=== PATIENT | female | born 1995 | race Two or more races ===

== ENCOUNTER 2024-07-14 11:34 | Day surgery (SDC) | payer MEDICAID, OTHER ==
[~2024-07-14] VITALS: Ht 162.6 cm; Wt 57.0 kg
--- NOTE | 2024-07-14 12:18 | ED.PDOC ---
INDUSTRIAL INSULATOR HPI Comments 29F who is estonian speaking only, presents to the ER w/ prior Hx of which may be associated to the c/c of vaginal bleeding. Pt reports on being 10 weeks and having a miscarriage 10 days ago. Pt states that her OBGYN which is Dr. Romero gave the pt medication named misoprostol. Pt states that she is currently bleeding due from the medication. Pt is M1. Denies chills, fever, N/V, SOB, CP or other associated symptoms, modifiers, or recent injuries at this time. Chief Complaint: Vaginal Bleed Time Seen by MD: 12:00 Reviewed Notes: Nurses Notes, Medications, Allergies Allergies: Coded Allergies: NO KNOWN ALLERGIES (Unverified , 07/14/24) Home Meds Active Scripts Nitrofurantoin Monohydrate Mac (Macrobid) 100 Mg Cap, 100 MG PO BID for 7 Days, #14 CAP Prov:GENEVA LAKHANI MD 07/14/24 Information Source: Patient Mode of Arrival: Ambulatory Timing: Days Prehospital treatment: None Severity: Moderate Vaginal Discharge: None Vaginal Lesions: None Vaginal Mass: None Onset Of Mass/Bleeding: Spontaneous, Other (due from taking misoprostol) Sexual Activity: Other (Had a miscarriage) Last Consensual [place]: Unknown Control: None Blood Type: Unknown Symptoms of Possible : None Associated Signs and Symptoms: Vaginal Bleeding Past Medical History Past Medical History (Other): M1 Surgical History: 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: No Pertinent 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 Family History Family History: Reviewed,noncontributory to illness, Unknown Social History Smoker: Non-Smoker Alcohol: Denies ETOH Use Drugs: Denies Drug Use Lives In: Home Constitutional: denies: chills, diaphoresis, fatigue, fever, malaise, sweats, weakness, others EENTM: denies: blurred vision, double vision, ear bleeding, ear discharge, ear drainage, ear pain, ear ringing, eye pain, eye redness, hearing loss, mouth pain, mouth swelling, nasal discharge, nose bleeding, nose congestion, nose pain, photophobia, tearing, throat pain, throat swelling, voice changes, others Respiratory: denies: cough, hemoptysis, orthopnea, SOB at rest, shortness of breath, SOB with excertion, stridor, wheezing, others Cardiovascular: denies: chest pain, dizzy spells, diaphoresis, Dyspnea on exertion, edema, irregular heart beat, left arm pain, lightheadedness, palpitations, PND, syncope, others Gastrointestinal: denies: abdomen distended, abdominal pain, blood streaked bowels, constipated, diarrhea, dysphagia, difficulty swallowing, hematemesis, melena, nausea, poor appetite, poor fluid intake, rectal bleeding, rectal pain, vomiting, others Genitourinary: reports: abnormal vagina bleeding; denies: burning, dyspareunia, dysuria, flank pain, frequency, hematuria, incontinence, pain, , vagina discharge, urgency, others Neurological: denies: dizziness, fainting, headache, left sided numbness, left sided weakness, numbness, paresthesia, pre-existing deficit, right sided numbness, right sided weakness, seizure, speech problems, tingling, tremors, weakness, others Musculoskeletal: denies: back pain, gout, joint pain, joint swelling, muscle pain, muscle stiffness, neck pain, others Integumetry: denies: bruises, change in color, change in hair/nails, dryness, laceration, lesions, lumps, rash, wounds, others Allergic/Immunocompromised: denies: Difficulty Healing, Frequent Infections, Hives, Itching, others Hematologic/Lymphatic: denies: anemia, blood clots, easy bleeding, easy bruising, swollen glands, others Endocrine: denies: excessive hunger, excessive sweating, excessive thirst, excessive urination, flushing, intolerance to cold, intolerance to heat, unexplained weight gain, unexplained weight loss, others Psychiatric: denies: anxiety, bipolar disorder, depression, hopeless, panic disorder, schizophrenia, sleepless, suicidal, others All Other Systems: Reviewed and Negative Physical Exam General Appearance: Moderate Distress, Normal HEENT: Normal ENT Inspection, Pharynx Normal, TMs Normal Neck: Full Range of Motion, Non-Tender, Normal, Normal Inspection Respiratory: Chest Non-Tender, Lungs Clear, No Accessory Muscle Use, No Respiratory Distress, Normal Breath Sounds Cardiovascular: No Edema, No JVD, No Murmur, No Gallop, Normal Peripheral Pulses, Regular Rate/Rhythm Breast Exam: Deferred Gastrointestinal: No Organomegaly, Non Tender, No Pulsatile Mass, Normal Bowel Sounds, Soft Genitalia: Deferred Pelvic: Deferred Rectal: Deferred Extremities: No calf tenderness, Normal capillary refill, Normal inspection, Normal range of motion, Non-tender, No pedal edema Musculoskeletal : Apperance: Normal Neurologic: Alert, marine diver II-XII nml as Tested, No Motor Deficits, Normal Affect, Normal Mood, No Sensory Deficits Cerebellar Function: Normal Reflexes: Normal Skin: Dry, Normal Color, Warm Peripheral Pulses: 3+ Radial (R), 3+ Radial (L) Lymphatic: No Adenopathy Was a procedure done? Was a procedure done?: No Differential Diagnosis (MONOTYPE KEYBOARD OPERATOR) Vaginal Bleeding: - Complete, - Incomplete, - Inevitable, - Threatened X-Ray, Labs, Meds, VS Vital Signs Date Time Temp Pulse Resp B/P (MAP) Pulse Ox O2 Delivery O2 Flow Rate FiO2 07/14/24 15:55 98.5 69 17 121/80 (94) 99 98.5 07/14/24 15:55 69 17 99 Room Air 07/14/24 11:53 97.8 84 20 117/74 (88) 97 Lab Test 07/14/24 16:03 07/14/24 12:03 07/14/24 11:59 Range/Units Prothrombin Time Pending Prothrombin Time INR Pending Activated Partial Thromboplast Time Pending White Blood Count 10.3 4.4-10.8 10^3/uL Red Blood Count 4.57 4.0-5.20 10^6/uL Hemoglobin 13.6 12.2-16.2 g/dL Hematocrit 39.6 36.0-46.0 % Mean Corpuscular Volume 86.5 80.0-100.0 fL Mean Corpuscular Hemoglobin 29.7 28.0-32.0 pg Mean Corpuscular Hemoglobin Concent 34.3 32.0-36.0 g/dL Red Cell Distribution Width 12.8 11.8-14.3 % Platelet Count 310 140-450 10^3/uL Mean Platelet Volume 8.6 6.9-10.8 fL Neutrophils (%) (Auto) 68.3 37.0-80.0 % Lymphocytes (%) (Auto) 22.0 10.0-50.0 % Monocytes (%) (Auto) 5.5 0.0-12.0 % Eosinophils (%) (Auto) 3.8 0.0-7.0 % Basophils (%) (Auto) 0.4 0.0-2.0 % Neutrophils # (Auto) 7.1 1.6-8.6 10 ^3/uL Lymphocytes # (Auto) 2.3 0.4-5.4 10 ^3/uL Monocytes # (Auto) 0.6 0-1.3 10 ^3/uL Eosinophils # (Auto) 0.4 0-0.8 10 ^3/uL Basophils # (Auto) 0 0-0.2 10 ^3/uL Nucleated Red Blood Cells 0.0 % Sodium Level 138 136-145 mmol/L Potassium Level 3.5 3.5-5.1 mmol/L Chloride Level 105 98-107 mmol/L Carbon Dioxide Level 26 20-31 mmol/L Anion Gap 7 5-15 Blood Urea Nitrogen 7 L 9-23 mg/dL Creatinine 0.59 0.550-1.02 mg/dL Glomerular Filtration Rate Calc 124 >90 mL/min BUN/Creatinine Ratio 11.9 10.0-20.0 Serum Glucose 85 74-106 mg/dL Calcium Level 10.1 8.7-10.4 mg/dL Beta HCG, Quantitative 48976.3 H 1.5-4.2 mIU/mL Urine Color Colorless Yellow Urine Clarity Turbid H Clear Urine pH 6.5 5.0-9.0 Urine Specific [place] 1.014 1.001-1.035 Urine Protein Negative Negative Urine Ketones Negative Negative Urine Blood 3+ H Negative /uL Urine Nitrite Negative Negative Urine Bilirubin Negative Negative Urine Urobilinogen Normal Negative mg/dL Urine Leukocyte Esterase 2+ Negative /uL Urine RBC 454 0 - 4 /hpf Urine WBC 18 0 - 5 /hpf Urine Squamous Epithelial Cells Few <5 /hpf Urine Bacteria None seen None Seen /hpf Urine Mucus Few None Seen Urine Glucose Normal Normal mg/dL Patient alert. Came in because of vaginal bleeding. Was recently here for possible miscarriage. Vitals stable. WBC within normal limits. Hemoglobin within normal limits. Spoke with OBGYN. Reviewed her previous history. She did take Cytotec. Will need D&C. Spoke with OBGYN. She really going for a D&C. Explained to the patient. Time of 1ST Reevaluation: 12:30 Reevaluation 1ST: Unchanged Patient Education/Counseling: Diagnosis, Treatment, Prognosis Family Education/Counseling: No Family Present Departure 1 Departure Time of Disposition: 12:41 Impression: Primary Impression: Vaginal bleeding Additional Impression: UTI (urinary tract infection) Qualified Codes: N30.01 - Acute cystitis with hematuria Disposition: ADMITTED INPATIENT Admit to: Med Surg Condition: Guarded e-Prescriptions Nitrofurantoin Monohydrate Mac (Macrobid) 100 Mg Cap 100 MG PO BID for 7 Days, #14 CAP Prov: GENEVA LAKHANI MD 07/14/24 Critical Care Note Critical Care Time?: Yes (45 min-critical care time only) Stability Stability form required: No Heart Score Heart Score: Heart Score Response (Comments) Value History N/A 0 EKG N/A 0 Age N/A 0 Risk Factors N/A 0 Troponin N/A 0 Total 0 I personally scribed for GENEVA LAKHANI MD ([email or web address]) on 07/14/24 at 12:18. Electronically submitted by Riccardo Delarosa ([email or web address]). GENEVA LAKHANI MD Jul 14, 2024 12:18
[2024-07-14 12:31] LABS: Urine Bacteria None Seen /hpf (None Seen)
[2024-07-14 12:36] LABS: Basophils # (auto) 0 10 ^3/uL (0-0.2); Basophils % (auto) 0.4 % (0.0-2.0); Eosinophils # (auto) 0.4 10 ^3/uL (0-0.8); Eosinophils % (auto) 3.8 % (0.0-7.0); Hematocrit 39.6 % (36.0-46.0); Hemoglobin 13.6 g/dL (12.2-16.2); Lymphocytes # (auto) 2.3 10 ^3/uL (0.4-5.4); Mean Corpuscular Hemoglobin 29.7 pg (28.0-32.0); Mean Corpuscular Hgb Conc. 34.3 g/dL (32.0-36.0); Mean Corpuscular Volume 86.5 fL (80.0-100.0); Monocytes # (auto) 0.6 10 ^3/uL (0-1.3); Monocytes % (auto) 5.5 % (0.0-12.0); Neutrophils # (auto) 7.1 10 ^3/uL (1.6-8.6); Neutrophils % (auto) 68.3 % (37.0-80.0); Platelet Count (auto) 310 10^3/uL (140-450); Red Blood Cells 4.57 10^6/uL (4.0-5.20); Red Cell Distribution Width 12.8 % (11.8-14.3); White Blood Cell 10.3 10^3/uL (4.4-10.8)
[2024-07-14 12:41] LABS: Chloride 105 mmol/L (98-107); Potassium 3.5 mmol/L (3.5-5.1); Sodium 138 mmol/L (136-145)
[2024-07-14 12:42] LABS: Anion Gap 7 (5-15); Calcium 10.1 mg/dL (8.7-10.4); Carbon Dioxide 26 mmol/L (20-31)
[2024-07-14 12:47] LABS: BUN/Creatinine Ratio 11.9 (10.0-20.0); Blood Urea Nitrogen 7 mg/dL (9-23); Glucose 85 mg/dL (74-106)
[2024-07-14 12:59] LABS: Urine Blood 3+ /uL (Negative); Urine Clarity Turbid (Clear); Urine Color Colorless (Yellow); Urine Mucus FEW (None Seen); Urine Protein, UAD Negative (Negative); Urine Specific Gravity 1.014 (1.001-1.035); Urine Urobilinogen Normal (Negative); Urine WBC 18 /hpf (0 - 5); Urine pH 6.5 (5.0-9.0)
[2024-07-14] MEDS ORDERED: NITR-87 PO (13:04)
--- NOTE | 2024-07-14 14:45 | DVH ---
OB ULTRASOUND <14 WEEKS: HISTORY: Miscarriage TECHNIQUE: Multiple real-time grayscale sonographic images of the pelvis with duplex Doppler color f low, spectral and M-mode analysis. TRANSDUCERS: Transabdominal FINDINGS: The uterus measures 10.9 x 0.4 x 7.1 cm. The cervix is not well-visualized Right ovary nonvisualized. Left ovary measures 3.5 x 2.9 x 2.7 cm with normal Doppler color flow. Left ovarian cystic structure measuring up to 2.3 cm. There is a gestational sac measuring approximately 4.81 cm. Internal yolk sac is present. Internal ec hogenicity measuring 2.4 cm, consistent with a pole. No heart rate or cardiac activity i s appreciated. IMPRESSION: 1. Findings suggestive of failed early . Could be confirmed with endovaginal ultrasound. HS:Y
--- NOTE | 2024-07-14 16:12 | DVHHP2 ---
OB CC & HPI Date Date of Admission: Jul 14, 2024 Patient Identification: : 3 Para: 2 History of Present Complaints 29y diagnosed with failed 1st trim last week. Seen in office by Dr. Mendenhall. Intrauterine Gest sac and yolk sac seen without pole or FHR. HCG levels greater than 20,000. Patient was given outpatient treatment with Cytotec 800mcg vaginally and admini stered it yesterday, Had bleeding , moderate without passage of any tissue. Currently denies any heavy bleeding, light spotting only and NO pain. Denies fever, chills, N/V or diarrhea. Came to ER to be evaluated and Pelvic US still shows intrauterine with no viable FHR Options discussed with patient (Expectant management, Repeat Cytotec dose, vs D&C procedure) Patient would like to proceed with D&C at this time (See orders and informed consent) Past Medical History Cardiac: No pertinent Hx Pulmonary: No pertinent Hx Central Nervous System: No pertinent Hx GI: No pertinent Hx Hemotology/Oncology: No pertinent Hx Hepatobiliary: No pertinent Hx Psychiatric: No pertinent Hx Musculoskeletal: No pertinent Hx Rheumotologic: No pertinent Hx Infectious Disease: No peritnent Hx ENT: No pertinent Hx Renal/: No pertinent Hx Endocrine: No pertinent Hx Dermatology: No pertinent Hx Past Surgical History: No pertinent Hx OB History OB History Care: Good Care Ultrasounds: Abnormal US findings (See HPI) Obstetrical Complications: None Other Concerns: [place] [address] Ph: [phone] DIAGNOSTIC IMAGING Diagnostic Imaging Report : [id number] Signed PATIENT: LIDIA MENDOZA ACCT: [id number] UNIT: [id number] : 1995 LOC: ER ROOM / BED: / AGE / SEX: 29 / F ADM STATUS: REG ER SERVICE 1307 ORDERING PHYSICIAN: GENEVA LAKHANI MD PROCEDURE(s): OB4US - OB ULTRASOUND COMP LESS 14WKS REASON: Miscarriage ORDER NUMBER(s): [id number], ACCESSION NUMBER(s): [id number] OB ULTRASOUND <14 WEEKS: HISTORY: Miscarriage TECHNIQUE: Multiple real-time grayscale sonographic images of the pelvis with duplex Doppler color flow, spectral and M-mode analysis. TRANSDUCERS: Transabdominal FINDINGS: The uterus measures 10.9 x 0.4 x 7.1 cm. The cervix is not well-visualized Right ovary nonvisualized. Left ovary measures 3.5 x 2.9 x 2.7 cm with normal Doppler color flow. Left ovarian cystic structure measuring up to 2.3 cm. There is a gestational sac measuring approximately 4.81 cm. Internal yolk sac is present. Internal echogenicity measuring 2.4 cm, consistent with a pole. No heart rate or cardiac activity is appreciated. IMPRESSION: 1. Findings suggestive of failed early . Could be confirmed with endovaginal ultrasound. HS:Y ATED BY: TIA WATSON DO DICTATED DATE/TIME: 07/14/24 1442 Allergies: Coded Allergies: NO KNOWN ALLERGIES (Unverified , 07/14/24) Home Meds Active Scripts Nitrofurantoin Monohydrate Mac (Macrobid) 100 Mg Cap, 100 MG PO BID for 7 Days, #14 CAP Prov:GENEVA LAKHANI MD 07/14/24 Review of Systems Constitutional: No symptom reported Ears, Nose, & Throat: No symptom reported Eyes: No symptom reported Pulmonary/Respiratory: No symptom reported Cardiovascular: No symptom reported Gastrointestinal: No symptom reported Genitourinary: No symptom reported Musculoskeletal: No symptom reported Skin: No symptom reported Psychiatric: No symptom reported Endocrine: No symptom reported Hemotologic/Lymphatic: No symptom reported OB Admission Exam Physical Exam Vitals: Vital Signs Date Time Temp Pulse Resp B/P (MAP) Pulse Ox O2 Delivery O2 Flow Rate FiO2 07/14/24 15:55 98.5 69 17 121/80 (94) 99 98.5 07/14/24 15:55 Room Air HEENT: NCAT Heart: Rhythm Normal Lungs: Clear Abdomen: Soft Extremities: Normal Reflexes: Normal Pelvic Exam: deferred to OR OB Plan Plan Admitting Diagnosis: Missed < 12 weeks Failed outpatient tx with Cytotec (misoprostol) Other Plan: Admit for Pelvic exam under anesthesia, suction dilation and curettage of the uterus R/B/A of procedure and anesthesia discussed with patient Risks of pain, bleeding, infection, injury to uterus/perforation, Asherman syndrome, all discussed with patient Risks of possible blood transfusion reviewed. Agrees to proceed w/ planned procedure. ELEN JONES DO Jul 14, 2024 16:12
[2024-07-14] MEDS ORDERED: LACTATED RINGER'S 1,000 ML IV SCH (16:15)
[2024-07-14 16:43] LABS: INR 1.03 (0.9-1.15); Partial Thromboplastin Time 29.1 SEC (24.5-34.5); Prothrombin Time 10.9 sec (9.3-11.8)
[2024-07-14] MEDS ORDERED: ceFAZolin 2 GM/D5W100ml 100 ML IV ONE (17:04)
[2024-07-14] MEDS ORDERED: KETAMINE 50mg/ML 1ml syringe ONE (17:14)
[2024-07-14] MEDS ORDERED: MIDAZOLAM HCL 2MG/2ML 2ml VIAL (1mg/ml) ONE (17:16)
[2024-07-14] MEDS ORDERED: fentaNYL CITRATE 100 MCG/2 ML VL ONE (17:16)
[2024-07-14] MEDS ORDERED: ONDANSETRON HCL 4 MG/2 ML VIAL ONE (17:19)
[2024-07-14] MEDS ORDERED: LIDOCAINE 2% (LOCAL ANESTH.) PF 5ml SDV ONE (17:19)
[2024-07-14] MEDS ORDERED: PROPOFOL 10 MG/ML 20 ML IV ONE (17:19)
[2024-07-14] MEDS ORDERED: IBUP-1455 PO (17:20)
[2024-07-14] MEDS ORDERED: DOX100T PO (17:20)
[2024-07-14] MEDS ORDERED: DOXYCYCLINE 100 MG TAB/CAP PO ONE (17:30)
[2024-07-14 17:57] VITALS: PULSE 110; RESP 11; TEMP 98.1; O2SAT 100
[2024-07-14] MEDS ORDERED: OXYTOCIN 10UNIT/ML 1ML VIAL ONE (18:00)
[2024-07-14] MEDS ORDERED: oxyTOCIN 10 UNIT/ML 10ML VIAL ONE (18:00)
--- NOTE | 2024-07-14 18:05 | DVHOP ---
DATE OF SURGERY: 07/14/2024 PREOPERATIVE DIAGNOSIS: Missed , first trimester. FINAL DIAGNOSIS: Missed , first trimester. PROCEDURES PERFORMED: * Pelvic exam under anesthesia. * Suction, dilatation and curettage of the uterus. SURGEON: Praneeth Day DO COMBINATION WELDER: None. TYPE OF ANESTHESIA: General. ANESTHESIOLOGIST: Dr. Waldron. DESCRIPTION OF FINDINGS: Enlarged uterus, approximately 12-week size. Cervix open with clots present at the cervical os. [id number] amounts of products of conception obtained. TECHNICAL PROCEDURE: After informed consent was obtained, the patient was taken to the operating room where she underwent smooth induction with general anesthesia. The patient was placed in dorsal lithotomy position in [facility]. The vagina and perineum were thoroughly prepped and the patient sterilely draped in the usual fashion. A pelvic exam was then performed under anesthesia with the above noted findings. A weighted speculum was placed into the patient's vagina. The anterior lip of the cervix was grasped with ring forceps. Uterine cavity sounded to 12 cm. The cervix was found to be open and dilated with clots present at the os. There was no active bleeding. Next, the cervix was gently dilated using Smith dilators, but much dilation was not necessary as the cervix was already open. Using a #11 curved cannula, the cannula was inserted into the uterine cavity to the level of the uterine fundus. The suction device activated, the instrument gently rotated and the uterus evacuated of all products of conception. Two passes of the suction were performed with ample amount of tissue removed. Next, a sharp uterine curettage was performed until a gritty texture was noted. At this point, anesthesia gave IM oxytocin for uterine contractility and to diminish blood loss. All instrumentation was removed from the patient's vagina. Bimanual uterine compression was performed and hemostasis was satisfactorily verified with minimal bleeding noted. The patient was taken out of lithotomy position, awakened, and taken to recovery room in stable condition. INTRAOPERATIVE COMPLICATIONS: None. ESTIMATED BLOOD LOSS: 200 mL. POSTOPERATIVE CONDITION: Stable. SPECIMENS: Products of conception. MEDICATIONS: The patient received 1 gram of Ancef prior to commencement of surgery. DO BINH Irvin/GERTRUDE TID: [id number] RECEIPT: [id number]
[2024-07-14 18:10] VITALS: PULSE 102; RESP 14; O2SAT 99
[2024-07-14] MEDS ORDERED: MORPHINE SULFATE INJ 2 MG/ml SYRG IV PRN (18:15)
[2024-07-14] MEDS ORDERED: ONDANSETRON HCL 4 MG/2 ML VIAL IV ONE (18:15)
[2024-07-14 18:45] VITALS: BP 101/52; PULSE 56; RESP 13; O2SAT 100
== END 2024-07-14 19:40 | disposition home or self-care (01) ==
LOC: ER 11:34 → SUR 16:12 → ER 16:51 → SUR 19:40
PROVIDERS: ATTEND Obstetrics & Gynecology
DX: O02.1 Missed abortion (principal); R10.2 Pelvic and perineal pain; Z3A.10 10 weeks gestation of pregnancy; N30.01 Acute cystitis with hematuria; Z98.891 History of uterine scar from previous surgery
CPT/HCPCS: 36415; 59820; 76801; 80048; 81001; 84702; 85025; 85610; 85730; 86850; 86900; 86901; 88305; 99284; J2001; J2250; J2405; J2590; J2704; J3010

== ENCOUNTER → 2024-12-04 | Outpatient (CLI) | payer MEDICAID ==
[~2024-12-04] MED LIST: DOX100T PO; IBUP-1455 PO; NITR-87 PO
== END | disposition home or self-care (01) ==
LOC: LAB 09:00
PROVIDERS: ATTEND Obstetrics & Gynecology
DX: O03.4 Incomplete spontaneous abortion without complication (principal)